=== PATIENT | female | born 1945 | race Two or more races ===

== ENCOUNTER → 2017-09-19 | Outpatient (CLI) | payer MEDICARE, BC | END | disposition home or self-care (01) | LOC: HKI 11:12 | DX: M25.551 Pain in right hip (principal); I10 Essential (primary) hypertension; J44.9 Chronic obstructive pulmonary disease, unspecified | CPT/HCPCS: 73502 ==

== ENCOUNTER → 2018-06-12 | Outpatient (CLI) | payer MEDICARE, BC | END | disposition home or self-care (01) | LOC: HKI 11:12 | DX: Z01.818 Encounter for other preprocedural examination (principal) | CPT/HCPCS: G0463 ==

== ENCOUNTER 2018-06-22 07:30 | Inpatient (IN) | payer MEDICARE, BC ==
[2018-06-22] MEDS: ACETAMINOPHEN 500 MG TAB PO (08:32)
[2018-06-22] MEDS: DEXAMETHASONE 4 MG/ML 1 ML INJ IV (08:32)
[2018-06-22] MEDS ORDERED: TRANEXAMIC ACID 1GM/100ML(PMX) 200 ML (10:36)
[2018-06-22] MEDS: CEFAZOLIN 2 GM/50 ML (PMX) 50 ML IVPB ×2 (11:00→17:55)
[2018-06-22] MEDS: TRANEXAMIC ACID 1GM/100ML(PMX) 100 ML INTRA-OP X1 IVPB (11:20)
[2018-06-22] MEDS: POLYMYXIN B 500000 UNIT INJ (11:46)
[2018-06-22] MEDS: BACITRACIN 50000 UNITS INJ IRR (11:53)
[2018-06-22] MEDS: POLYMYXIN/BACITRACIN 1L IRRIG (11:53)
[2018-06-22] MEDS ORDERED: MAGNESIUM HYDROXIDE 30ML CUP PO (13:00)
[2018-06-22] MEDS ORDERED: MIDAZOLAM 1 MG/ML 2 ML INJ IV (13:00)
[2018-06-22] MEDS ORDERED: METOCLOPRAMIDE 10 MG INJ IV (13:00)
[2018-06-22] MEDS ORDERED: EPHEDrine SULFATE 50 MG/5 ML SYG IV (13:00)
[2018-06-22] MEDS ORDERED: DIPHENHYDRAMINE 50 MG INJ IV (13:00)
[2018-06-22] MEDS ORDERED: HYDROmorphONE 1 MG/5 ML IV SYRINGE IV ×3 (13:00)
[2018-06-22] MEDS ORDERED: hydrALAzine 20 MG INJ IV (13:00)
[2018-06-22] MEDS ORDERED: LABETALOL HCL 20MG INJ IV (13:00)
[2018-06-22] MEDS ORDERED: ONDANSETRON 4 MG INJ IV (13:00)
[2018-06-22] MEDS ORDERED: NACL 0.9% 3 ML SYG IV (13:00)
[2018-06-22] MEDS ORDERED: MEPERIDINE 25 MG INJ IV (13:00)
[2018-06-22] MEDS ORDERED: oxyCODONE 5 MG TAB PO (13:00)
[2018-06-22] MEDS ORDERED: ALBUTEROL 0.083% (NEB) 2.5 MG/3 ML AMP HHN (13:00)
[2018-06-22] MEDS ORDERED: NALOXONE (0.4 MG/ML) INJ IV (13:00)
[2018-06-22] MEDS ORDERED: FENTAnyl 50 MCG/ML VIAL IV ×3 (13:00)
[2018-06-22] MEDS ORDERED: ONDANSETRON 4 MG INJ (13:14)
[2018-06-22 14:02] LABS: ADD UMIC YES; UR ASCORBIC ACID NEGATIVE (NEGATIVE); UR BACTERIA MODERATE /HPF (NONE SEEN); UR BILIRUBIN (Dip) NEGATIVE (NEGATIVE); UR BLOOD (Dip) 2+ mg/dL (NEGATIVE); UR CLARITY CLOUDY (CLEAR); UR COLOR YELLOW (YELLOW); UR GLUCOSE (Dip) NEGATIVE (NEGATIVE); UR KETONES (Dip) NEGATIVE (NEGATIVE); UR LEUKOCYTE ESTERASE (Dip) 3+ Leu/ul (NEGATIVE); UR MUCUS FEW /HPF (NONE SEEN); UR NITRITE (Dip) NEGATIVE (NEGATIVE); UR RBC 27 /HPF (0-5); UR TOTAL PROTEIN (Dip) NEGATIVE (NEGATIVE); UR UROBILINOGEN (Dip) NEGATIVE (NEGATIVE); UR WBC > 182 /HPF (0-5)
[2018-06-22] MEDS: LACTATED RINGER'S 1,000 ML IV ×2 (15:31→15:40)
[2018-06-22] MEDS: LACTATED RINGER'S 1,000 ML IV* (15:32)
[2018-06-22] MEDS: KETOROLAC 15 MG INJ IV (15:33)
[2018-06-22] MEDS: GABAPENTIN 100 MG CAP PO ×2 (15:40→20:17)
[2018-06-22] MEDS ORDERED: MECLIZINE 25 MG TAB PO (17:30)
[2018-06-22] MEDS ORDERED: traMADol 50 MG TAB PO (17:30)
[2018-06-22] MEDS: CALCIUM/VITAMIN D (500/200) TAB PO (20:17)
[2018-06-22] MEDS: ALBUTEROL HFA 8 GM INHALER INH (23:00)
[2018-06-22] MEDS: GUAIFENESIN LA 600 MG TABSR PO (23:00)
[2018-06-22] MEDS: oxyCODONE 5 MG TAB PO (23:12)
[2018-06-23] MEDS: CEFAZOLIN 2 GM/50 ML (PMX) 50 ML IVPB ×2 (00:42→07:56)
[2018-06-23] MEDS: ALPRAZOLAM 0.5 MG TAB PO (01:57)
[2018-06-23] MEDS: oxyCODONE 5 MG TAB PO ×2 (04:31→13:20)
[2018-06-23 05:30] LABS: ADD MAN DIFF? NO
[2018-06-23 05:36] LABS: ABNORMAL IP MESSAGE 1; HEMATOCRIT 31.5 % (37.0-47.0); HEMOGLOBIN 10.2 g/dl (12.0-16.0); LYMPHOCYTES # 0.7 10^3/ul (0.8-2.9); LYMPHOCYTES % 10.2 % (15.0-51.0); MEAN CORPUSCULAR HEMOGLOBIN 29.4 pg (29.0-33.0); MEAN CORPUSCULAR HGB CONC 32.4 g/dl (32.0-37.0); MEAN CORPUSCULAR VOLUME 90.8 fl (82.0-101.0); MONOCYTE # 0.3 10^3/ul (0.3-0.9); MONOCYTES % 4.3 % (0.0-11.0); NEUTROPHIL # 5.5 10^3/ul (1.6-7.5); PLATELET COUNT 72 10^3/UL (140-415); RED BLOOD COUNT 3.47 10^6/ul (4.20-5.40)
[2018-06-23 05:36] LABS: WHITE BLOOD COUNT 6.5 10^3/ul (4.8-10.8)
[2018-06-23 05:46] LABS: POSITIVE DIFF @See below
[2018-06-23 06:06] LABS: ANION GAP 8 (5-13); BLOOD UREA NITROGEN 18 mg/dl (7-20); CALCIUM 9.2 mg/dl (8.4-10.2); CARBON DIOXIDE 23 mmol/L (21-31); CHLORIDE 110 mmol/L (97-110); CREATININE 0.99 mg/dl (0.44-1.00); Estimated GFR 55 mL/min (>60); GLUCOSE 112 mg/dl (70-220); SODIUM 141 mmol/L (135-144)
[2018-06-23] MEDS: LEVOTHYROXINE 100 MCG TAB PO (06:23)
[2018-06-23] MEDS: PANTOPRAZOLE (EC) 40 MG TAB PO (06:23)
[2018-06-23] MEDS: KETOROLAC 15 MG INJ IV (08:05)
[2018-06-23] MEDS ORDERED: NON-FORMULARY/PATIENT OWN MED (Omeprazole* (Prilosec*) 40 MG) PO (09:00)
[2018-06-23] MEDS: CELECOXIB 100 MG CAP PO ×2 (09:34→20:17)
[2018-06-23] MEDS: GABAPENTIN 100 MG CAP PO ×3 (09:35→20:17)
[2018-06-23] MEDS: CALCIUM/VITAMIN D (500/200) TAB PO ×2 (09:35→20:17)
[2018-06-23] MEDS: FOLIC ACID 1 MG TAB PO (09:35)
[2018-06-23] MEDS: ASPIRIN (EC) 81 MG TAB PO ×2 (09:37→20:28)
[2018-06-23] MEDS: DOCUSATE SODIUM 100 MG CAP PO ×2 (09:37→20:16)
[2018-06-23] MEDS: SERTRALINE 50 MG TAB PO (09:37)
[2018-06-23] MEDS: POTASSIUM CHLORIDE (SR) 20 MEQ TAB PO (09:40)
[2018-06-23] MEDS: METOPROLOL (XL) 50 MG TAB PO (09:40)
[2018-06-23] MEDS ORDERED: ONDANSETRON 4 MG INJ IV (13:00)
[2018-06-23] MEDS: LACTATED RINGER'S 1,000 ML IV (13:39)
[2018-06-23] MEDS: TIOTROPIUM 18 MCG CAPSULE INHA DEV INH (13:40)
[2018-06-23] MEDS: ZOLPIDEM 5 MG TAB PO (21:53)
[2018-06-24] MEDS: LACTATED RINGER'S 1,000 ML IV ×2 (02:09→14:39)
[2018-06-24 05:14] LABS: ADD MAN DIFF? NO
[2018-06-24 05:25] LABS: WHITE BLOOD COUNT 6.4 10^3/ul (4.8-10.8)
[2018-06-24 05:25] LABS: ABNORMAL IP MESSAGE 1; BASOPHILS % 0.3 % (0.0-2.0); EOSINOPHILS % 0.3 % (0.0-7.0); LYMPHOCYTES # 1.3 10^3/ul (0.8-2.9); LYMPHOCYTES % 20.3 % (15.0-51.0); MEAN CORPUSCULAR HEMOGLOBIN 30.1 pg (29.0-33.0); MEAN CORPUSCULAR HGB CONC 32.3 g/dl (32.0-37.0); MEAN CORPUSCULAR VOLUME 93.4 fl (82.0-101.0); MEAN PLATELET VOLUME 10.4 fl (7.4-10.4); MONOCYTE # 0.6 10^3/ul (0.3-0.9); MONOCYTES % 9.3 % (0.0-11.0); NEUTROPHIL # 4.5 10^3/ul (1.6-7.5); NEUTROPHILS % 69.3 % (39.0-77.0); PLATELET COUNT 78 10^3/UL (140-415); RED BLOOD COUNT 3.32 10^6/ul (4.20-5.40); RED CELL DISTRIBUTION WIDTH 15.4 % (11.5-14.5)
[2018-06-24 05:44] LABS: ANION GAP 8 (5-13); BLOOD UREA NITROGEN 28 mg/dl (7-20); CALCIUM 8.7 mg/dl (8.4-10.2); CARBON DIOXIDE 26 mmol/L (21-31); CHLORIDE 107 mmol/L (97-110); Estimated GFR 44 mL/min (>60); GLUCOSE 98 mg/dl (70-220); POTASSIUM 4.2 mmol/L (3.5-5.1); SODIUM 141 mmol/L (135-144)
[2018-06-24 05:50] LABS: POSITIVE DIFF @See below
[2018-06-24] MEDS: PANTOPRAZOLE (EC) 40 MG TAB PO (05:54)
[2018-06-24] MEDS: LEVOTHYROXINE 100 MCG TAB PO (05:54)
[2018-06-24] MEDS: oxyCODONE 5 MG TAB PO (05:57)
[2018-06-24] MEDS: TRANEXAMIC ACID 1GM/100ML(PMX) 100 ML PRE-OP X1 IVPB (09:17)
[2018-06-24] MEDS: METOPROLOL (XL) 50 MG TAB PO (09:20)
[2018-06-24] MEDS: TIOTROPIUM 18 MCG CAPSULE INHA DEV INH (09:21)
[2018-06-24] MEDS: DOCUSATE SODIUM 100 MG CAP PO (09:22)
[2018-06-24] MEDS: CALCIUM/VITAMIN D (500/200) TAB PO (09:22)
[2018-06-24] MEDS: CELECOXIB 100 MG CAP PO (09:22)
[2018-06-24] MEDS: POTASSIUM CHLORIDE (SR) 20 MEQ TAB PO (09:22)
[2018-06-24] MEDS: SERTRALINE 50 MG TAB PO (09:22)
[2018-06-24] MEDS: FOLIC ACID 1 MG TAB PO (09:23)
[2018-06-24] MEDS: ASPIRIN (EC) 81 MG TAB PO (09:23)
[2018-06-24] MEDS: GABAPENTIN 100 MG CAP PO ×2 (09:23→15:16)
[2018-06-24 10:02] LABS: IRON 29 ug/dl (35-150)
[2018-06-24 10:12] LABS: % IRON SATURATION 9 % SAT (22-52); TOTAL IRON BINDING CAPACITY 330 ug/dl (241-421)
[2018-06-24 10:34] LABS: HEPATITIS B SURFACE ANTIGEN NEGATIVE (NEGATIVE)
[2018-06-24 10:38] LABS: FERRITIN 25.6 ng/ml (11.1-264.0)
[2018-06-24 10:51] LABS: HEPATITIS C VIRAL ANTIBODY NEGATIVE (NEGATIVE)
[2018-06-24] MEDS ORDERED: ARFORMOTEROL TARTRATE 15MCG/2 ML AMP INH (20:00)
[2018-06-24] MEDS ORDERED: BUDESONIDE (NEB) 0.5MG/2ML AMP INH (20:00)
== END 2018-06-24 19:00 | disposition home health service (06) | DRG 468 ==
LOC: REC 07:30 → MS1 15:20
PROC: 0SR904Z Replacement of Right Hip Joint with Ceramic on Polyethylene Synthetic Substitute, Open Approach (ICD-10-PCS; principal; 2018-06-22 10:00)
PROC: 0SP90JZ Removal of Synthetic Substitute from Right Hip Joint, Open Approach (ICD-10-PCS; 2018-06-22 10:00)
DX: T84.030A Mechanical loosening of internal right hip prosthetic joint, initial encounter (principal); J44.9 Chronic obstructive pulmonary disease, unspecified; M06.9 Rheumatoid arthritis, unspecified; I10 Essential (primary) hypertension; E03.9 Hypothyroidism, unspecified; Y83.2 Surgical operation with anastomosis, bypass or graft as the cause of abnormal reaction of the patient, or of later complication, without mention of misadventure at the time of the procedure; Z78.0 Asymptomatic menopausal state
CPT/HCPCS: 73530; 80048; 81001; 82728; 83540; 85025; 86803; 86850; 86900; 86901; 87070; 87081; 87086; 87340; 88300; 97116; 97162; 97165; 97530